=== PATIENT | male | born 1950 | race Two or more races ===

== ENCOUNTER 2023-07-07 13:43 | Day surgery (SDC) | payer MEDICARE ==
[2023-07-05 14:34] LABS: Basophils # (auto) 0.1 10 ^3/uL (0-0.2); Eosinophils # (auto) 0.4 10 ^3/uL (0-0.8); Lymphocytes # (auto) 4.8 10 ^3/uL (0.4-5.4)
[2023-07-05 14:35] LABS: Eosinophils % (auto) 3.3 % (0.0-7.0); Hematocrit 46.3 % (41.0-53.0); Hemoglobin 15.7 g/dL (13.5-17.5); Lymphocytes % (auto) 41.4 % (10.0-50.0); Mean Corpuscular Hemoglobin 33.4 pg (28.0-32.0); Mean Corpuscular Hgb Conc. 33.9 g/dL (32.0-36.0); Mean Corpuscular Volume 98.7 fL (80.0-100.0); Monocytes # (auto) 1.2 10 ^3/uL (0-1.3); Monocytes % (auto) 10.5 % (0.0-12.0); Neutrophils # (auto) 5.1 10 ^3/uL (1.6-8.6); Neutrophils % (auto) 43.8 % (37.0-80.0); Nucleated Red Blood Cells % 0.1 %; White Blood Cell 11.6 10^3/uL (4.4-10.8)
[2023-07-05 14:48] LABS: INR 1.08 (0.9-1.15); Partial Thromboplastin Time 28.7 SEC (24.5-34.5); Prothrombin Time 11.3 sec (9.3-11.8)
[2023-07-05 15:08] LABS: Alanine Aminotransferase 30 U/L (7-40); Albumin 4.7 g/dL (3.2-4.8); Alkaline Phosphatase 60 U/L (46-116); Anion Gap 7 (5-15); Aspartate Aminotransferase 30 U/L (13-40); BUN/Creatinine Ratio 11.7 (10.0-20.0); Bilirubin, Total 0.5 mg/dL (0.2-1.0); Blood Urea Nitrogen 13 mg/dL (9-23); Calcium 9.9 mg/dL (8.5-10.1); Carbon Dioxide 28 mmol/L (20-30); Chloride 111 mmol/L (98-107); Glucose 91 mg/dL (74-106); Potassium 5.5 mmol/L (3.5-5.1); Sodium 146 mmol/L (136-145); Total Protein 7.9 g/dL (5.7-8.2)
[~2023-07-07] VITALS: Ht 167.6 cm; Wt 83.9 kg
[~2023-07-07 13:43] MED LIST: DILT-29 PO; LOSA100T58 PO; PRAV20TA3 PO
[2023-07-07] MEDS ORDERED: SODIUM CHLORIDE LOCK 10 ML ONE (14:37)
[2023-07-07 15:22] VITALS: O2SAT 97
[2023-07-07] MEDS: fentaNYL CITRATE 100 MCG/2 ML VL ONE ×2 (15:30→15:37)
[2023-07-07] MEDS: MIDAZOLAM HCL 5 MG/ML-1ML VIAL ONE ×2 (15:30→15:37)
[2023-07-07] MEDS: diphenhdrAMINE HCL 50 MG/1 ML VL ONE ×2 (15:30→15:31)
[2023-07-07] MEDS ORDERED: ceFAZolin 1GM/50ML 50 ML IV ONE (15:40)
[2023-07-07 16:03] VITALS: TEMP 97.4; O2SAT 99
[2023-07-07 16:55] VITALS: BP 136/66; PULSE 63; RESP 17; O2SAT 93
== END 2023-07-07 17:00 | disposition home or self-care (01) ==
LOC: GI 13:43
PROVIDERS: ATTEND Internal Medicine Gastroenterology
DX: R19.5 Other fecal abnormalities (principal); K64.0 First degree hemorrhoids; K63.5 Polyp of colon; Z86.010 Personal history of colon polyps; I10 Essential (primary) hypertension; Z79.899 Other long term (current) drug therapy; E78.5 Hyperlipidemia, unspecified; Z98.890 Other specified postprocedural states
CPT/HCPCS: 36415; 45385; 80053; 85025; 85610; 85730; 88305; J0690; J1200; J2250; J3010; J7030; 99152; 99153